=== PATIENT | female | born 1940 | race Caucasian/White ===

== ENCOUNTER 2023-05-08 11:51 | Day surgery (SDC) | payer MEDICARE, BC ==
[2023-05-04 14:29] LABS: BASOPHILS # (AUTO) 0.1 X10'3 (0-0.2); BASOPHILS % (AUTO) 0.8 % (0-1); EOSINOPHILS # (AUTO) 0.2 X10'3 (0-0.9); EOSINOPHILS % (AUTO) 2.3 % (0-6); HEMATOCRIT 40.7 % (35.0-45.0); HEMOGLOBIN 13.4 g/dl (12.0-16.0); LYMPHOCYTES # (AUTO) 2.6 X10'3 (1.1-4.8); LYMPHOCYTES % (AUTO) 36.4 % (21-51); MEAN CORPUSCULAR HEMOGLOBIN 31.7 PG (27.0-31.0); MEAN CORPUSCULAR VOLUME 96.1 FL (78-98); MEAN PLATELET VOLUME 8.5 FL (7.4-10.4); MONOCYTES # (AUTO) 0.7 X10'3 (0-0.9); MONOCYTES % (AUTO) 9.2 % (2-12); NEUTROPHILS # (AUTO) 3.7 X10'3 (1.8-7.7); NEUTROPHILS % (AUTO) 51.3 % (42-75); PLATELET COUNT 206 X10'3 (140-440); RED BLOOD COUNT 4.24 X10'6 (4.20-5.60); RED CELL DISTRIBUTION WIDTH 16.4 % (11.5-14.5); WHITE BLOOD COUNT 7.1 X10'3 (4.5-11.0)
[2023-05-04 14:36] LABS: ALBUMIN 3.3 G/DL (3.4-5.0); ANION GAP 9 (8-16); BLOOD UREA NITROGEN 23 MG/DL (7-18); BUN/CREATININE RATIO 21.7 (10.0-20.0); CHLORIDE 104 MMOL/L (99-107); CREATININE 1.06 MG/DL (0.40-0.90); GLUCOSE 112 MG/DL (70-104); POTASSIUM 4.3 MMOL/L (3.5-5.1); SODIUM 140 MMOL/L (135-145); TOTAL CARBON DIOXIDE 27.3 MMOL/L (24-32); eGFR 50 ML/MIN
[2023-05-04 14:41] LABS: APTT 30 SECONDS (22-32); INR 1.1 INR; PROTHROMBIN TIME 11.9 SECONDS (9.0-12.0)
[2023-05-08] VITALS (10 sets, daily range): BP systolic 125–163; BP diastolic 74–98; PULSE 59–70; RESP 10–19; TEMP 97.7; O2SAT 95–100
[~2023-05-08] VITALS: Ht 160 cm; Wt 98.5 kg
[2023-05-08] MEDS ORDERED: fentaNYL/PF 50MCG/1 ML 2ML syringe IV ONE (12:05)
[2023-05-08] MEDS ORDERED: normal saline 1000ml 1,000 ML IV SCH (12:05)
[2023-05-08] MEDS ORDERED: MIDAZolam 1mg/ml 10ml vial IV ONE (12:05)
[2023-05-08] MEDS ORDERED: BENZ-111 PO (12:06)
[2023-05-08] MEDS ORDERED: LEVO50TA8 PO (12:06)
[2023-05-08] MEDS ORDERED: AMI200T PO (12:06)
[2023-05-08] MEDS ORDERED: ATOR40TA72 PO (12:06)
[2023-05-08] MEDS ORDERED: METO25TA6 PO (12:06)
[2023-05-08] MEDS ORDERED: APIX5TAB3 PO (12:06)
== END 2023-05-08 16:25 | disposition home or self-care (01) ==
LOC: SSTAY O 11:51
PROVIDERS: ATTEND Student in an Organized Health Care Education/Training Program
DX: I48.91 Unspecified atrial fibrillation (principal); E78.5 Hyperlipidemia, unspecified; E03.9 Hypothyroidism, unspecified; Z79.899 Other long term (current) drug therapy; Z88.5 Allergy status to narcotic agent; Z91.040 Latex allergy status
CPT/HCPCS: 36415; 80048; 85025; 85610; 85730; 92960; J2250; J3010; J7030; A4620